=== PATIENT | male | born 1945 | race Caucasian/White ===

== ENCOUNTER 2024-12-09 14:42 | Emergency (ER) | payer MEDICARE, SELFPAY ==
[2024-12-09 14:51] VITALS: BP 138/75; PULSE 60; RESP 20; TEMP 36.7; O2SAT 95; BMI 29.0
--- NOTE | 2024-12-09 15:02 | XR_ITS ---
Examination: Duplex scan of the lower extremity, unilateral right Date and time of exam: December 09, 2024, 1529 hrs. Indications: Right leg swelling beginning 2 months ago. Technique: Duplex scan of the extremity veins using B-mode/grayscale imaging and Doppler spectral analysis and color flow Attention is directed to internal echogenicity, compression and augmentation involving these veins, color flow assessment, spectral analysis Findings: Major deep venous structures in the extremity demonstrate normal course and caliber. There is no evidence of deep vein thrombosis. Normal color flow and spectral analysis Impression: Negative for DVT..
--- NOTE | 2024-12-09 15:02 | PD.EDRME ---
Rapid Medical Screening Exam RME Arrival date/time: 12/09/24 14:42 Chief Complaint: Extremity Problem,Nontraumatic Time Seen by Provider: 12/09/24 14:58 Vital signs: Vital Signs Temperature 98.0 F 12/09/24 14:51 Pulse Rate 60 12/09/24 14:51 Respiratory Rate 20 12/09/24 14:51 Blood Pressure 138/75 H 12/09/24 14:51 Pulse Oximetry (%) 95 12/09/24 14:51 Oxygen Delivery Method Room Air 12/09/24 14:51 RME Narrative: Swelling, redness to RLE x3 weeks
[2024-12-09 15:28] LABS: Basophils # (Auto) 0.1 Thou/mm3 (0.0-0.2); Basophils % (Auto) 1 % (0-2.5); Eosinophils # (Auto) 0.1 Thou/mm3 (0.0-0.5); Eosinophils % (Auto) 2 % (0-10); Hematocrit 42.5 % (41.0-53.0); Hemoglobin 14.8 g/dL (13.5-16.0); Immature Granulocytes Auto 0.02 Thou/mm3 (0.00-0.00); Lymphocytes # (Auto) 1.6 Thou/mm3 (1.0-4.8); Lymphocytes % (Auto) 20 % (10-50); Mean Corpuscular HGB Conc 34.8 g/dl (31.0-37.0); Mean Corpuscular Hemoglobin 30.6 pg (25.0-35.0); Mean Corpuscular Volume 88 fL (80-100); Monocytes # (Auto) 0.7 Thou/mm3 (0.0-0.8); Monocytes % (Auto) 9 % (0-12); Neutrophils # (Auto) 5.7 Thou/mm3 (1.8-7.7); Neutrophils % (Auto) 69 % (37-80); Nucleated Red Blood Cell # 0.00 Thou/mm3 (0.00-0.00); Nucleated Red Blood Cell % 0 /100 WBC (0); Platelet Count 139 Thou/mm3 (140-440); RDW Standard Deviation 38.7 fL (35.1-43.9); Red Blood Count 4.84 Miln/mm3 (4.50-5.90); White Blood Count 8.2 Thou/mm3 (3.8-10.6)
[2024-12-09 15:48] LABS: Sed Rate (ESR) 11 mm/hr (0-20)
[2024-12-09 15:52] LABS: Alanine Aminotransferase 55 U/L (10-49); Albumin, Serum 4.2 gm/dL (3.4-4.8); Albumin/Globulin Ratio 1.8 (1.2-2.2); Alkaline Phosphatase 87 U/L (46-116); Anion Gap 10 (7-16); Aspartate Amino Transferase 39 U/L (0-34); BUN/Creatinine Ratio 15 Ratio (12-20); Bilirubin,Total 1.0 mg/dL (0.3-1.2); Blood Urea Nitrogen 15 mg/dL (9-23); C-Reactive Protein < 0.5 mg/dL (0.0-0.9); Calcium 9.8 mg/dL (8.3-10.6); Calcium (Corrected) 9.8 mg/dL (8.5-10.1); Carbon Dioxide 23.8 mMol/L (20.0-31.0); Chloride 107 mMol/L (98-107); Creatinine (Component) 1.0 mg/dL (0.6-1.3); Estimated Creatinine Clearance 60.0 mL/min (>60); Globulin 2.3 gm/dL (2.3-3.5); Glucose 97 mg/dL (74-106); Osmolality,Calculated 282 (275-295); Potassium 3.8 mMol/L (3.4-5.1); Sodium 141 mMol/L (136-145); Total Protein 6.5 gm/dL (5.7-8.2); eGFR > 60 See Note
[2024-12-09 16:10] VITALS: BP 144/84; PULSE 57; RESP 18; TEMP 36.5; O2SAT 95
--- NOTE | 2024-12-09 16:21 | EDNOTE_ITS ---
<Statement entered by Ying Flores MD - 12/10/24 06:24> As co-signing physician, I was present and available for consult prn. I concur with the plan and care as documented by the midlevel provider. ED Extremity Problem RME/HPI General Chief complaint: Extremity Problem,Nontraumatic Stated complaint: Right leg swollen X 2 months Time Seen by Provider: 12/09/24 14:58 Arrival date/time: 12/09/24 14:42 RME / HPI RME / HPI Narrative: 79-year-old male patient came in for evaluation regarding right lower leg swelling, patient has been putting a compression brace to the right knee, due to pain. Patient is ambulatory. According to him his knee is getting better however the distal portion of the compression dressing is getting swollen, denies any fever, denies any pain, denies any tenderness, denies any other complaints patient is ambulatory. Related Data Home Medications ?Medication ?Instructions ?Recorded ?Confirmed amlodipine 10 mg tablet 10 mg PO QDAY 09/12/1811/06 metoprolol tartrate 50 mg tablet 50 mg PO QDAY 9 11/06/22 aspirin 81 mg tablet 81 mg PO QDAY 02/04/2111/06 memantine 10 mg tablet 10 mg PO BID 02/04/21 atorvastatin 20 mg tablet 20 mg PO QDAY 11/06/2211/06 losartan 25 mg tablet 25 mg PO QDAY 11/06/2211/06 Allergies Allergy/AdvReac Type Severity Reaction Status Date / Time No Known Allergies Allergy Verified 12/09/24 14:46 Review of Systems Review of Systems Narrative Review of Systems: Review of system reviewed and within normal limits except mentioned in HPI ED Exam Narrative Physical exam: VITAL SIGNS: Reviewed. GENERAL APPEARANCE: Alert and interactive, follows commands, no acute distress, HEAD AND FACE: Non-traumatic. ENT: PERRL, pink conjunctivitis, eyelid no trauma, Mucous membrane moist. NECK: Supple, nontender, no nuchal rigidity. CHEST: No tenderness, no crepitus, no paradoxical movement, no retractions. LUNGS: Clear, well ventilated, symmetric, no rales, no wheezing, no ronchi, no stridor, good breath sounds bilaterally. HEART: Regular rate, regular rhythm, no murmur, no gallops. ABDOMEN: Soft, positive bowel sounds, nondistended, no guarding, nontender, no rebound, no masses, RECTAL: Deferred. GENITAL: Deferred. NEUROLOGICAL: Gross motor function intact sensory function intact, Appropriate for age. MUSCULOSKELETAL: low back nontender, full range of motion. EXTREMITIES: Right lower leg swelling, no redness, no skin breakdown, nontender, distal neurovascular status intact, full range of motion. SKIN: Color pink, dry, no rash, no lacerations, no abrasions, no contusions. LYMPHATICS: Deferred. Course Quality Measures none Orders Category Date Time Status US venous duplex LE RT Stat Exams 12/09/24 15:02 Completed CBC Stat Lab 12/09/24 15:19 Completed CMP [Comprehensive Metabolic Panel] Stat Lab 12/09/24 15:19 Completed CRP [C-Reactive Protein] Stat Lab 12/09/24 15:19 Completed ESR [Sed Rate (ESR)] Stat Lab 12/09/24 15:19 Completed Vital Signs Vital signs: Vital Signs Temperature 98.0 F 12/09/24 14:51 Pulse Rate 60 12/09/24 14:51 Respiratory Rate 20 12/09/24 14:51 Blood Pressure 138/75 H 12/09/24 14:51 Pulse Oximetry (%) 95 12/09/24 14:51 Oxygen Delivery Method Room Air 12/09/24 14:51 Extremity Problem MDM Narrative MDM Narrative:: 79-year-old male patient came in for evaluation regarding right lower leg swelling, patient has been putting a compression brace to the right knee, due to pain. Patient is ambulatory. According to him his knee is getting better however the distal portion of the compression dressing is getting swollen, denies any fever, denies any pain, denies any tenderness, denies any other complaints patient is ambulatory. Ultrasound of the right lower extremity is negative for DVT. Laboratory workup did not show any abnormality. No metabolic or infectious process noted. Patient's lower leg swelling could be related to the compression dressing/stocking in the knee, I advised the patient to wear long lower leg compression stocking in the morning and remove it during the night. Elevate the leg also as needed. Plan of care discussed with the patient and family's. Stable for discharge home Patient data External records reviewed:: None Clinical information provided by:: patient Social determinants that could affect healthcare access:: none Patient has the following chronic illnesses:: Hypertension How is presenting disease/condition affected by chronic disease/condition?: uneffected by Evaluation data The following diagnostics were reviewed and interpreted by me:: lab results and radiology exam(s) Lab and/or radiology exams considered but not ordered:: None Interpretation Summary: See results MDM Medications / Prescriptions Medications or Prescriptions considered but not ordered:: None Medication administrations:: None Consultations Consultation(s) initiated? (list below): No Diagnosis Extremity Problem Differential Diagnosis: cellulitis, superficial thrombophlebitis, lower extremity edema and deep vein thrombosis of lower extremity Most likely diagnosis given after review of the tests above:: Lower extremity swelling Admission Indicated Admission indicated?: not indicated Explain why admission is indicated or not indicated:: Stable Admission Request Was there a request for admission?: No Disposition Plan Disposition Plan: Discharge Discharge Attestation Discharge Attestation: The patient and all family members were given an opportunity to ask questions and understood the discharge instructions. Discharge instructions specifically effects, indications for sooner follow up or return to the emergency department, and the expected course of current diagnosis. Patient condition: Stable Discharge Plan Plan Patient Disposition: HOME (Self Care) Discharge Disposition comment: Stable Prescriptions/Referrals Prescriptions/Med Rec: No Action aspirin 81 mg Tablet 81 mg PO QDAY memantine 10 mg Tablet 10 mg PO BID amlodipine 10 mg Tablet 10 mg PO QDAY metoprolol tartrate 50 mg Tablet 50 mg PO QDAY atorvastatin 20 mg tablet 20 mg PO QDAY Patient Comments: TAKE 1 TABLET BY MOUTH ONCE DAILY losartan 25 mg tablet 25 mg PO QDAY Patient Comments: TAKE 1 TABLET BY MOUTH ONCE DAILY FOR 30 DAYS Referrals: Denis Metz MD [Primary Care Provider] - In 1 week Problem List Clinical Impression: Swelling of lower leg Patient/Caregiver Discharge Instructions Discharge Activity: activity as tolerated Education Materials: ED Leg Swelling in a Single Leg Additional Instructions: Thank you for the opportunity for serving you today. You are stable for discharged . You are advised to: Follow-up with your PCP in 1 to 2 days Return to ED for worsening of symptoms Elevate your leg as needed especially during the night with pillows, or as LAURA hose or compression stocking in the morning and remove it during the night Your ultrasound of the leg is negative for DVT, your laboratory workup today all came back normal Print Language: Cymro Stand Alone Forms: Sendy Award Info., Patient Portal Info Letter PA/STITCH BONDING MACHINE TENDER HELPER Supervising Physician PA/STITCH BONDING MACHINE TENDER HELPER Supervising Physician: MD Zoya
== END 2024-12-09 16:39 | disposition home or self-care (01) ==
PROVIDERS: Physician Assistant; Emergency Provider Emergency Medicine; PCP Internal Medicine
DX: R60.0 Localized edema (principal)
CPT/HCPCS: 36415; 80053; 85025; 85652; 86140; 93971; 99283

== ENCOUNTER 2025-01-15 16:16 | Emergency (ER) | payer MEDICARE, SELFPAY ==
[2025-01-15 16:19] VITALS: BMI 29.0
[2025-01-15 16:25] VITALS: BP 136/80; PULSE 64; RESP 18; TEMP 36.5; O2SAT 96
--- NOTE | 2025-01-15 16:39 | XR_ITS ---
Examination: CT abdomen and pelvis without contrast. Coronal 3-D reconstructions. Sagittal 2-D reconstructions. Date and time of exam:January 15, 2025, 1830 hrs. Indications: Abdominal pain and constipation today CTDI: vol (mGy): 6.67 DLP: (mGycm): 439 Technique: Axial images of the abdomen have been obtained, 3 mm slice thickness Intravenous contrast material has not been administered. Low dose protocols were performed. One or more of the following dose reduction techniques were used; automated exposure control, adjustment of the mA and/or KV according to patient size, use of iterative reconstruction technique. Findings: Small liver cysts including 23 mm cyst medial right lobe liver No biliary tract dilatation No gallstones Spleen not enlarged No pancreatic or adrenal mass No renal or ureteral calculi, no hydronephrosis Aorta normal size Normal appendix No bowel obstruction No diverticulitis Large amount stool in the rectum with thickening of the rectal wall Transverse prostate dimension 5.9 cm 2 mm calculus at the base of the urinary bladder Multiple prostate calcifications Impression: No renal or ureteral calculi, no hydronephrosis Normal appendix Large amounts of stool in the rectum with thickening the retrocrural wall, proctitis pattern Suspicious for 10 mm calculus in the urinary bladder Multiple prostate calcifications
[2025-01-15 17:03] LABS: Basophils # (Auto) 0.0 Thou/mm3 (0.0-0.2); Basophils % (Auto) 0 % (0-2.5); Eosinophils # (Auto) 0.1 Thou/mm3 (0.0-0.5); Eosinophils % (Auto) 1 % (0-10); Hematocrit 41.9 % (41.0-53.0); Hemoglobin 14.8 g/dL (13.5-16.0); Immature Granulocytes Auto 0.02 Thou/mm3 (0.00-0.00); Lymphocytes # (Auto) 1.5 Thou/mm3 (1.0-4.8); Lymphocytes % (Auto) 15 % (10-50); Mean Corpuscular HGB Conc 35.3 g/dl (31.0-37.0); Mean Corpuscular Hemoglobin 30.9 pg (25.0-35.0); Mean Corpuscular Volume 88 fL (80-100); Monocytes # (Auto) 0.6 Thou/mm3 (0.0-0.8); Monocytes % (Auto) 7 % (0-12); Neutrophils # (Auto) 7.5 Thou/mm3 (1.8-7.7); Neutrophils % (Auto) 77 % (37-80); Nucleated Red Blood Cell # 0.00 Thou/mm3 (0.00-0.00); Nucleated Red Blood Cell % 0 /100 WBC (0); Platelet Count 149 Thou/mm3 (140-440); RDW Standard Deviation 39.8 fL (35.1-43.9); Red Blood Count 4.79 Miln/mm3 (4.50-5.90); White Blood Count 9.8 Thou/mm3 (3.8-10.6)
[2025-01-15 17:23] LABS: Alanine Aminotransferase 46 U/L (10-49); Albumin, Serum 4.4 gm/dL (3.4-4.8); Albumin/Globulin Ratio 1.8 (1.2-2.2); Alkaline Phosphatase 101 U/L (46-116); Amylase 80 U/L (30-118); Anion Gap 10 (7-16); Aspartate Amino Transferase 38 U/L (0-34); BUN/Creatinine Ratio 14 Ratio (12-20); Bilirubin,Total 1.1 mg/dL (0.3-1.2); Blood Urea Nitrogen 13 mg/dL (9-23); Calcium 9.6 mg/dL (8.3-10.6); Calcium (Corrected) 9.6 mg/dL (8.5-10.1); Carbon Dioxide 24.3 mMol/L (20.0-31.0); Chloride 109 mMol/L (98-107); Creatinine (Component) 0.9 mg/dL (0.6-1.3); Estimated Creatinine Clearance 60.2 mL/min (>60); Globulin 2.5 gm/dL (2.3-3.5); Glucose 122 mg/dL (74-106); Osmolality,Calculated 286 (275-295); Potassium 3.3 mMol/L (3.4-5.1); Sodium 143 mMol/L (136-145); Total Protein 6.9 gm/dL (5.7-8.2); eGFR > 60 See Note
[2025-01-15 19:10] LABS: Collection Type, Urine Voided; Squamous Epithelial Cell,Urine 0 /hpf (0-5)
[2025-01-15 19:43] LABS: Bacteria,Urine Rare; Bilirubin,Urine Negative (Negative); Blood,Urine Negative (Negative); Calcium Oxalate Crystals,Urine 2+; Clarity,Urine Turbid (Clear/Hazy); Color,Urine Yellow (Lt Yel-Yel); Glucose, Urine Negative (Negative); Ketones,Urine Negative (Negative); Leukocyte Esterase,Urine Positive (Negative); Nitrite,Urine Negative (Negative); PH,Urine 5.5 (5.0-7.0); Protein,Urine Trace (Neg - Trace); RBC,Urine 24 /hpf (0-3); Specific Gravity,Urine 1.029 (1.001-1.035); Urobilinogen,Urine Negative mg/dL (0.0-1.0); WBC,Urine 9 /hpf (0-5)
--- NOTE | 2025-01-15 20:58 | PD.EDABDPN ---
ED Abdominal Pain RME/HPI General Chief Complaint: General Adult/Misc Complain Stated complaint: CONSTIPATION, ONLY HAVING SMALL BM X1WK Time seen by provider: 01/15/25 16:36 Arrival date/time: This is a case of 79-year-old male who came here with history of chronic constipation came in in the emergency room due to constipation for 1 week no BM for 2 days associated with abdominal pain with history of chronic constipation came in in the emergency room due to abdominal pain constipation no BM for 2 days patient denies any nausea vomiting diarrhea nor blood in stool persistence of the symptoms thus patient decided to start consult here in the emergency room Limitations: no limitations Related Data Home Medications ?Medication ?Instructions ?Recorded ?Confirmed amlodipine 10 mg tablet 10 mg PO QDAY 09/12/18 11/06/22 metoprolol tartrate 50 mg tablet 50 mg PO QDAY 09/12/18 11/06/22 aspirin 81 mg tablet 81 mg PO QDAY 02/04/21 11/06/22 memantine 10 mg tablet 10 mg PO BID 02/04/21 11/06/22 atorvastatin 20 mg tablet 20 mg PO QDAY 11/06/22 11/06/22 losartan 25 mg tablet 25 mg PO QDAY 11/06/22 11/06/22 Previous Rx's ?Medication ?Instructions ?Recorded bisacodyl 10 mg rectal suppository 10 mg RI QDAY PRN constipation #12 01/15/25 (Dulcolax (bisacodyl)) ea cephalexin 500 mg tablet 500 mg PO Q8H #30 tabs 01/15/25 dicyclomine 20 mg tablet 20 mg PO TID PRN abdominal pain 01/15/25 #20 tabs peg 3350-electrolytes 236 240 ml PO Q10M #250 mL 01/15/25 gram-22.74 gram-6.74 gram-5.86 gram solution (Golytely) Allergies Allergy/AdvReac Type Severity Reaction Status Date / Time No Known Allergies Allergy Verified 01/15/25 16:20 Review of Systems Review of Systems Systems Reviewed: All systems reviewed, normal except as documented Constitutional Constitutional: Reports system reviewed and no additional complaints, except as documented and Reports as per HPI ENT Ears, Nose, Mouth, and Throat: Denies dysphagia and Denies odynophagia Cardiovascular Cardiovascular: Reports system reviewed and no additional complaints, except as documented and Reports as per HPI Respiratory Respiratory: Reports system reviewed and no additional complaints, except as documented and Reports as per HPI Gastrointestinal Gastrointestinal: Reports system reviewed and no additional complaints, except as documented, Reports as per HPI, Reports abdominal pain, Denies belching, Denies bloating, Denies change in bowel habits, Denies change in stool character, Denies coffee ground emesis, Reports constipation, Denies cramping, Denies diarrhea, Denies dyspepsia, Denies dysphagia, Denies early satiety, Denies excessive flatus, Denies fecal incontinence, Denies heartburn, Denies hematemesis, Denies hematochezia, Denies loose stools, Denies melena, Denies nausea, Denies odynophagia, Denies tenesmus and Denies vomiting Genitourinary Genitourinary: Reports system reviewed and no additional complaints, except as documented and Reports as per HPI Integumentary/Breasts Skin/Breast: Reports system reviewed and no additional complaints, except as documented and Reports as per HPI Neurologic Neurologic: Reports system reviewed and no additional complaints, except as documented and Reports as per HPI Past Medical History Past Medical History NEUROLOGIC: Positive Neurological Disorders and Dementia; Negative Seizures CARDIAC: Positive Hypercholesterolemia and Hypertension; Negative Cardiac Disorders or Congestive Heart Failure RESPIRATORY: Negative Chronic Obstructive Pulmonary Disease (COPD) GASTROINTESTINAL: Positive Gastrointestinal Disorders (CONSTIPATION) GENITOURINARY: Negative Genitourinary Disorders or Renal Disease MUSCULOSKELETAL: Negative Musculoskeletal Disorders ENT: Positive Cataracts ENDOCRINE: Negative Endocrine Disorders, Diabetes Mellitus Type 1 or Diabetes Mellitus Type 2 HEMATOLOGIC: Negative Blood Disorders OTHER HISTORY: Positive Falls; Negative Autoimmune Disease, Blood Transfusions, Blood Transfusion Reaction, Anesthesia Reactions, Organ Transplant, MRSA, Clostridium Difficile or Cancer Family History FAMILY HISTORY: Positive Family Cardiac Disorders (FATHER- HTN); Negative Family Cancer Surgical History SURGICAL: Negative Cardiac Surgery, Endocrine Surgery, Ear Surgery, Abdominal Surgery, Nephrectomy, Joint Replacement or Organ Transplant Social History SMOKING STATUS: Never smoker ED Exam General Limitations: Present no limitations General appearance: Present alert, in no apparent distress and other (Patient is awake alert oriented not in distress nontoxic looking well-hydrated well-nourished) Head Head exam: Present atraumatic, normocephalic and normal inspection Eye Eye exam: Present normal appearance, PERRL and EOMI ENT ENT exam: Present normal exam, normal oropharynx and mucous membranes moist Neck Neck exam: Present normal inspection, full ROM and trachea midline; Absent tenderness, meningismus or lymphadenopathy Chest Chest inspection: Present normal inspection and symmetric chest wall rise; Absent tenderness Respiratory Respiratory exam: Present normal lung sounds bilaterally; Absent respiratory distress, wheezes, stridor, accessory muscle use or prolonged expiratory phase Cardiovascular Cardiovascular exam: Present regular rate, normal rhythm and normal heart sounds; Absent bradycardia, tachycardia, irregular rhythm, systolic murmur or diastolic murmur Abdominal Exam Abdominal exam: Present soft, normal bowel sounds and other (Normoactive bowel sounds no CVA tenderness); Absent distention, tenderness, guarding, rebound, rigidity, diminished bowel sounds, hyperactive bowel sounds, organomegaly, psoas sign, obturator sign, Javed's sign, Rovsing's sign, tenderness at McBurney's Point or hernia Extremities Exam Extremities exam: Present normal inspection and full ROM Back Exam Back exam: Present normal inspection and full ROM Neurological Exam Neurological exam: Present alert, oriented X3, CN II-XII intact, normal gait and reflexes normal; Absent motor sensory deficit Psychiatric Psychiatric exam: Present normal affect and normal mood Skin Skin exam: Present warm, dry, intact and normal color Course Quality Measures none Orders Category Date Time Status CT abdomen pelvis wo con Stat Exams 01/15/25 16:39 Completed Amylase Stat Lab 01/15/25 16:54 Completed CBC Stat Lab 01/15/25 16:54 Completed CMP [Comprehensive Metabolic Panel] Stat Lab 01/15/25 16:54 Completed Urinalysis Stat Lab 01/15/25 18:22 Completed Potassium Chloride [K-Dur] Med 01/15/25 18:49 Discontinued 20 meq PO X1 ONE Vital Signs Vital signs: Vital Signs Temperature 97.7 F 01/15/25 16:25 Pulse Rate 64 01/15/25 16:25 Respiratory Rate 18 01/15/25 16:25 Blood Pressure 136/80 H 01/15/25 16:25 Pulse Oximetry (%) 96 01/15/25 16:25 Oxygen Delivery Method Room Air 01/15/25 16:25 Patient vital signs stable BP stable not tachycardic not tachypneic BP stable not hypoxic oxygen saturation is 96% in room air Abdominal Pain MDM MDM Narrative MDM Narrative:: This is a case of 79-year-old male who came here with history of chronic constipation came in in the emergency room due to constipation for 1 week no BM for 2 days associated with abdominal pain with history of chronic constipation came in in the emergency room due to abdominal pain constipation no BM for 2 days patient denies any nausea vomiting diarrhea nor blood in stool persistence of the symptoms thus patient decided to start consult here in the emergency room Physical examination patient is awake alert oriented not in distress nontoxic looking lungs sound is clear no crackles no rales no retraction no stridor heart normal rate regular rhythm no murmur no pitting edema abdominal exam is benign nonsurgical no guarding no rebound no rigidity normal active bowel sounds no tenderness negative psoas negative straight or negative Rovsing's neck McBurney's negative Javed sign negative CVA tenderness blood test showed no leukocytosis no anemia kidney and liver function is normal patient noted potassium is low 3.3 thus K-Dur was given here in the emergency room she he will follow-up with primary care physician to monitor his potassium level as an outpatient and to repeat the level in 2 days urinalysis showed WBC and RBC in urine suggestive of urinary tract infection patient CT scan showed a liver cyst and multiple prostate calcification I discussed also to the patient that he needs to see a shipping track supervisor for further evaluation and treatment of chronic constipation and liver cyst he also need to see a urologist for multiple calcium gastric calcification to rule out BPH or prostate cancer based on my physical examination and history there is no signs and symptoms of abdominal acute patient abdomen is due to constipation patient was prescribed with GoLytely and Dulcolax suppository and he was advised to return here in the emergency room if he still having no BM worsening symptoms or any emergent concern he was advised to return in the emergency room immediately or call 911 Patient was discharged with comfortable condition walking with stable gait. Patient verbalized no further complains explained diagnosis and answered patient question. Patient is comfortable with the proposed management plan including the need to follow up with his/her primary care physician and any specialist if applicable Discussed patient for any urgent condition or worsening sx, He/She needed to go to emergency room immediately or call 911. Patient acknowledge the responsibility to follow up as instructed and to monitor her/his symptoms. For any persistence of the symptoms for more than 3-5 days return precaution advised. Discussed the result of the test and was given printed discharge instruction Patient data External records reviewed:: [facility] previous records Clinical information provided by:: family Social determinants that could affect healthcare access:: none Patient has the following chronic illnesses:: None How is presenting disease/condition affected by chronic disease/condition?: no chronic disease Evaluation data The following diagnostics were reviewed and interpreted by me:: lab results and radiology exam(s) Lab and/or radiology exams considered but not ordered:: Reviewed Interpretation Summary: Reviewed Medications / Prescriptions Medications or Prescriptions considered but not ordered:: Given Medication administrations:: Medication Administration History Discontinued Medications Potassium Chloride (Potassium Chloride 20 Meq Tabcr) 20 meq PO X1 ONE Stop: 01/15/25 18:50 Last Admin: 01/15/25 19:11 Dose: 20 meq Documented By: CN Given Consultations Consultation(s) initiated? (list below): No Diagnosis Differential diagnosis abdominal pain: abdominal pain, acute appendicitis, calculus of kidney, constipation and diverticulitis Most likely diagnosis given after review of the tests above:: Constipation Admission Indicated Admission indicated?: not indicated Explain why admission is indicated or not indicated:: Not indicated Admission Request Was there a request for admission?: No Admission Attestation Admission request attestation: Not indicated Disposition Plan Disposition Plan: Discharge Discharge Attestation Discharge Attestation: The patient and all family members were given an opportunity to ask questions and understood the discharge instructions. Discharge instructions specifically effects, indications for sooner follow up or return to the emergency department, and the expected course of current diagnosis. Patient condition: Stable Discharge Plan Plan Patient Disposition: HOME (Self Care) Patient condition on transfer: Stable Prescriptions/Referrals Prescriptions/Med Rec: New peg 3350-electrolytes [Golytely] 236-22.74-6.74 -5.86 gram recon soln 240 ml PO Q10M Qty: 250 0RF Rx Instructions: until fecal effluent is clear dicyclomine 20 mg tablet 20 mg PO TID PRN (Reason: abdominal pain) Qty: 20 0RF bisacodyl [Dulcolax (bisacodyl)] 10 mg suppository 10 mg RI QDAY PRN (Reason: constipation) Qty: 12 0RF cephalexin 500 mg tablet 500 mg PO Q8H Qty: 30 0RF No Action aspirin 81 mg Tablet 81 mg PO QDAY memantine 10 mg Tablet 10 mg PO BID amlodipine 10 mg Tablet 10 mg PO QDAY metoprolol tartrate 50 mg Tablet 50 mg PO QDAY atorvastatin 20 mg tablet 20 mg PO QDAY Patient Comments: TAKE 1 TABLET BY MOUTH ONCE DAILY losartan 25 mg tablet 25 mg PO QDAY Patient Comments: TAKE 1 TABLET BY MOUTH ONCE DAILY FOR 30 DAYS Referrals: No Primary/Family,Physician [Primary Care Provider] - In 1 week Problem List Clinical Impression: Abdominal pain, Urinary tract infection, Hypokalemia, Constipation, Calcification of prostate Patient/Caregiver Discharge Instructions Education Materials: Abdominal Pain, Urinary Tract Infections in Men, Prostate Anatomy, ED Constipation (Adult), ED Hypokalemia Additional Instructions: Follow-up with your primary care physician in 2 days for reevaluation and to be referred to shipping track supervisor for further evaluation and treatment of your liver cyst and chronic constipation you also need to see a urologist for further evaluation and treatment of multiple prostate calcification ruled out BPH versus cancer follow-up with your primary care physician to monitor your potassium level and to repeat the level in 2 days as an outpatient take your medication as directed Pedialyte Gatorade for hydration finish the course of antibiotic high-fiber diet is advised Print Language: Swiss Stand Alone Forms: Sendy Award Info., Patient Portal Info Letter PA/SIOBHAN Supervising Physician ASHLI/SIOBHAN Supervising Physician: dr [email or web address]
[2025-01-15 21:38] VITALS: BP 147/72; PULSE 50; RESP 16; TEMP 36.8; O2SAT 96
== END 2025-01-15 21:40 | disposition home or self-care (01) ==
PROVIDERS: Nurse Practitioner Family; Emergency Provider Family Medicine
DX: N39.0 Urinary tract infection, site not specified (principal); K59.00 Constipation, unspecified; E87.6 Hypokalemia; N42.89 Other specified disorders of prostate; K76.89 Other specified diseases of liver; I10 Essential (primary) hypertension; E78.00 Pure hypercholesterolemia, unspecified
CPT/HCPCS: 36415; 74176; 80053; 81001; 82150; 85025; 99284; A9270

== ENCOUNTER → 2025-02-16 | Outpatient (CLI) | payer MEDICARE, SELFPAY ==
--- NOTE | 2025-02-16 14:30 | XR_ITS ---
Examination: Arterial duplex lower extremity study. Date and time of exam: February 16, 2025, 1438 hours INDICATIONS: Bilateral leg swelling and pain years Findings: Duplex sonographic imaging of the lower extremity arteries using B-mode/Johnson scale imaging and Doppler spectral analysis and color flow. Ankle brachial indices have been recorded. Right common femoral artery demonstrates triphasic flow. Right superficial femoral artery demonstrates triphasic flow. Right popliteal artery demonstrates triphasic flow. Right posterior tibial artery demonstrated biphasic flow. Right ankle/brachial index is 1.0. Left common femoral artery demonstrates triphasic flow. Left superficial femoral artery demonstrates biphasic flow. Left popliteal artery demonstrates triphasic flow. Left posterior tibial artery demonstrated biphasic flow. Left ankle/brachial index is 1.2. Impression: Negative study
== END | disposition home or self-care (01) ==
LOC: CDIM 14:14
PROVIDERS: PCP Nurse Practitioner Family; Referring Provider Nurse Practitioner Family; Visit Provider Nurse Practitioner Family
DX: R60.0 Localized edema (principal)
CPT/HCPCS: 93925